=== PATIENT | male | born 1995 | race Caucasian/White ===

== ENCOUNTER 2017-03-06 16:51 | Emergency (ER) | payer BC ==
[2017-03-06] MEDS ORDERED: NORMAL SALINE 10 ML SYRINGE FLUSH IVP PRN (17:15)
[2017-03-06 17:26] VITALS: RESP 18; TEMP 96.9
[2017-03-06 17:35] LABS: BASOPHILS # (AUTO) 0.02 10*3/UL; BASOPHILS % (AUTO) 0.2 % (0-1); EOSINOPHILS # (AUTO) 0.09 10*3/UL; HEMATOCRIT 44.1 % (42.0-52.0); HEMOGLOBIN 15.1 g/dL (14.0-18.0); LYMPHOCYTES # (AUTO) 3.12 10*3/uL; MEAN CORPUSCULAR HGB CONC 34.2 g/dL (33-37); MEAN CORPUSCULAR VOLUME 81.8 FL (80-90); MEAN PLATELET VOLUME 9.9 FL (7.4-12.2); MONOCYTES # (AUTO) 0.69 10*3/UL (0.3-0.8); MONOCYTES % (AUTO) 7.9 % (5-15); NEUTROPHILS # (AUTO) 4.75 10*3/UL; NEUTROPHILS % (AUTO) 54.5 % (50-80); RED BLOOD COUNT 5.39 10^6/uL (4.70-6.10)
[2017-03-06 17:36] LABS: PLATELET MORPHOLOGY COMMENT NORMAL MORPHOLOGY (NORM); RBC MORPHOLOGY COMMENT NORMAL MORPHOLOGY (NORM); WBC MORPHOLOGY COMMENT NORMAL MORPHOLOGY (NORM)
[2017-03-06 17:45] LABS: BLOOD UREA NITROGEN 20 mg/dL (7-22); CALCIUM 9.4 mg/dL (8.7-10.7); EST GLOMERULAR FILTRATION > 60 (>60 ml/min/1.73m(2)); SERUM ALBUMIN 4.6 g/dL (3.5-4.8)
--- NOTE | 2017-03-06 18:12 | DI ---
PA /LATERAL CHEST X-RAY, 03/06/2017 5:15 PM : Clinical History: Hemoptysis. Previous Exam: None at this facility. There is no acute soft tissue or bony abnormality. Heart size is normal. Lungs are clear. Mediastinal structures are normal. There are no pulmonary nodules. IMPRESSION: Normal chest x-ray.
--- NOTE | 2017-03-06 19:38 | DI ---
CT CTA CHEST NONCORONARY W/WO,03/06/2017 6:08 PM: Clinical History: Hemoptysis Previous Exam: April 17, 2016 Findings: Multiple helically acquired CT images are obtained through the chest following the administration of intravenous contrast as part of a CT angiogram protocol, and demonstrate some linear densities within the right pulmonary arteries most consistent with some residual fibrin from an old pulmonary embolis m. There is no truncation. The aorta is within normal limits. The heart appears normal. There is no infiltrate nor effusion and there is no evidence of pulmonary infarction. Skeletal structures are unremarkable. Impression: Mild residual linear densities within the right lower lobe pulmonary arteries most consistent with ch ronic pulmonary embolism with some residual fibrin. There is no other filling defect identified, and this is believed to be residual from the prior pulmonary embolism seen back in March of last year.
--- NOTE | 2017-03-06 23:02 | PDOC ---
General Adult HPI - General Chief Complaint: General Medical Stated Complaint: "COUGHING UP BLOOD", DIZZY Date Seen by Provider: 03/06/17 Time Seen by Provider: 16:55 Source: POSITIVE: Patient Exam Limitations: POSITIVE: No limitations Nurse's Notes Reviewed & Considered: Yes - History of Present Illness Initial Comment: The patient is a 21-year-old male. He states that 3 days ago he "coughed up" some mucoid sputum streaked with blood. He had 2 similar episodes today. He has not had tanner hemoptysis but he states he had some blood streaked on mucoid sputum. Patient states he was diagnosed with a pulmonary embolism in 2013. Patient states that just prior to this diagnosis he" passed out" [place] He was on anticoagulants for about 6 months thereafter. Then patient had another pulmonary embolism diagnosed about 6 months ago and he has been on Zarrella toe since. Patient did have a inferior vena cava filter placed, which has since been removed. Patient has been seen at the [facility] in [place] and his primary care provider is in [place]. Patient denies any acute chest pain. He denies any easy bruising, ecchymosis, or blood in his urine or stool. Have you received a tetanus shot in the past 10 years?: Yes Body Location Affected: REPORTS: Other (Coughing up blood tinged sputum as above , 4 episodes in the past 3 days) Duration: Other (As above) Severity: Mild Quality: REPORTS: Other (Patient denies any pain anywhere) Context: REPORTS: Coughing Modifying Factors: improves with: Nothing Similar Symptoms Previously: No Recent Care Received: REPORTS: Denies Any Prior Injuries Related to Current Complaint?: Yes (as above) - Patient Home Medications Home Medications: Home Medications Rivaroxaban [Xarelto] 20 mg PO DAILY 06/21/16 - Patient Allergies Allergies/Adverse Reactions: Allergies Allergy/AdvReac Type Severity Reaction Status Date / Time No Known Drug Allergies Allergy NOT Verified 03/06/17 17:02 APPLICABLE Past Medical History - heblanca HEENT History: Denies History Cardiovascular History: DVTs Additional Cardiovasular History: SINCE EXPOSURE TO GAS IN 2014, GREEN'S FILTER PLACED AND REMOVED 3 MONTHS LATER Respiratory History: Pulmonary Embolism Additional Respiratory History: QUIT SMOKING 06/2014 (only smoked socially). CHRONIC SOB AND COUGH SINCE WASTE GAS EXPOSURE 07/2014 Gastrointestinal History: Denies History Genitourinary History: Denies History Endocrine History: Denies History Musculoskeletal History: Denies History Prosthesis or Implant: No Neurological History: Denies History Blood Disorders: Other (please comment) Additional Blood Disorders History: DVT AND PE AFTER HAVING A INHALATION ACCIDENT IN THE [place]ACE Psychiatric History: Denies History History of Sexually Transmitted Diseases: No Cancer History: Denies History In Past Year Been Physically Harmed or Verbally Threatened: No History of MDRO: Unknown History of Other Communicable Diseases: No Tobacco Use: Former Smoker Alcohol Use: Occasionally Substance Use Type: None Previous Surgical History: Yes Type / Date of Surgery: [place]ol[place] filter placed AND REMOVED 3 MONTHS LATER Anesthesia Reactions: No Malignant Hyperthermia: No Significant Family History: Diabetes Additional Family History: MOTHER (DVT) Past Medical History Reviewed: Reviewed - No Changes ROS - Limitations ROS Limitations: No Limitations Constitution: REPORTS: Denies Symptoms Cardiovascular: REPORTS: Denies Cardiac Symptoms Respiratory: REPORTS: Cough Productive (Cough productive of mucoid blood tinged sputum) Neurological: REPORTS: Denies Neuro Symptoms Gastrointestinal: REPORTS: Denies GI Symptoms Endocrine: REPORTS: Denies Symptoms Musculoskeletal: REPORTS: Denies MS Symptoms Genitourinary: REPORTS: Denies Symptoms Eyes: REPORTS: Denies Symptoms ENT: REPORTS: Nasal Drainage (Some postnasal drainage) Skin: REPORTS: Denies Skin Symptoms Lympathic: REPORTS: Denies Lympathic Symptoms Immunologic: POSITIVE: Denies Symptoms Psychiatric: POSITIVE: Denies Psych Symptoms General Adult Exam - General Appearance General Appearance: POSITIVE: Alert, Cooperative, No Acute Distress, No Evidence of Trauma - HEENT HEENT: POSITIVE: Head Inspection Nml, Eyes Inspection Nml, Ears Inspection Nml, Nose Inspection Nml, Oral/Dental Inspect. Nml, Pharynx Inspect. Nml, PERRL, EOMI - Pupils Pupil Size: 3 mm: Bilateral (PERRLA) - Neck Neck: POSITIVE: Normal Inspection, Thyroid Normal - Respiratory Respiratory: POSITIVE: No Respiratory Distress, Breath Sounds Normal, Chest Non- Tender - Cardiovascular Cardiovascular: POSITIVE: Regular Rate & Rhythm, No Murmur, No Gallop, PMI Normal Peripheral Pulses: Radial (R): 2+, Radial (L): 2+ - Abdomen Abdomen: Soft: (All Quadrants), Normal Bowel Sounds: (All Quadrants), Denies Tenderness: (All Quadrants), No Splenomegaly: (All Quadrants), No Hepatomegaly: (All Quadrants), No Guarding: (All Quadrants), No Rebound: (All Quadrants), No Palpable Pulse: (All Quadrants), No Palpabale Mass: (All Quadrants), No Distention: (All Quadrants), No Rigidity: (All Quadrants) - Back Back: POSITIVE: Normal Inspection - Skin Skin: POSITIVE: Normal Color, Warm, Dry, No Rash - Extremities Extremity: Non-Tender: (All Extremities), Normal ROM: (All Extremities), Normal Inspection: (All Extremities) - Neurological / Psychological Neurological: POSITIVE: Oriented X3, 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 CTA of chest shows mild residual linear densities within the right lower lobe pulmonary arteries compatible with chronic pulmonary embolism. No acute filling defects identified per radiologist. Lab Results Reviewed: Yes Lab Results:: Laboratory Results 03/06/17 Range/Units 17:31 WBC 8.72 (4.8-10.8) 10^3/uL RBC 5.39 (4.70-6.10) 10^6/uL Hgb 15.1 (14.0-18.0) g/dL Hct 44.1 (42.0-52.0) % MCV 81.8 (80-90) FL MCH 28.0 (27-31) PG MCHC 34.2 (33-37) g/dL RDW Std Deviation 40.2 (39-50) fL RDW Coeff of Emma 13.6 (11.5-14.5) % Plt Count 234 (140-350) 10*3/uL MPV 9.9 (7.4-12.2) FL Immature Gran % (Auto) 0.6 (0-5) % Neut % (Auto) 54.5 (50-80) % Lymph % (Auto) 35.8 (10-50) % Redwood % (Auto) 7.9 (5-15) % Eos % (Auto) 1.0 (0-8) % Baso % (Auto) 0.2 (0-1) % Immature Gran # (Auto) 0.05 10*3/UL Neut # (Auto) 4.75 10*3/UL Lymph # (Auto) 3.12 10*3/uL Redwood # (Auto) 0.69 (0.3-0.8) 10*3/UL Eos # (Auto) 0.09 10*3/UL Baso # (Auto) 0.02 10*3/UL WBC Morphology Comment Normal morphology (NORM) Plt Morphology Comment Normal morphology (NORM) RBC Morph Comment Normal morphology (NORM) PT 10.7 (9.7-11.4) secs INR 1.04 (0.00-5.90) N/A D-Dimer < 0.19 (0.00-0.59) mg/L Sodium 141 (135-145) meq/L Potassium 4.2 (3.8-5.2) meq/L Chloride 103 (98-112) meq/L Carbon Dioxide 27 (23-33) meq/L Anion Gap 11 (5-20) BUN 20 (7-22) mg/dL Creatinine 1.0 (0.70-1.50) mg/dL Estimated GFR > 60 (>60 ml/min/1.73m(2)) BUN/Creatinine Ratio 20.00 (6-20) Glucose 84 (78-110) mg/dL Calculated Osmolality 293.0 H (267-292) mOsm/kg Calcium 9.4 (8.7-10.7) mg/dL Total Bilirubin 0.4 (0.3-1.2) mg/dL AST 26 (21-57) IU/L ALT 45 (21-72) IU/L Alkaline Phosphatase 51 (38-126) IU/L Total Protein 8.1 H (6.1-8.0) g/dL Albumin 4.6 (3.5-4.8) g/dL Globulin 3.5 (2.50-4.10) g/dL Albumin/Globulin Ratio 1.30 (1.3-2.0) mg/g - Patient's Progress Pain Medication Addressed: POSITIVE: Not Applicable School/Work Release Addressed: POSITIVE: Not Applicable Re-Examine Time: 19:50 Status: POSITIVE: Unchanged Antibiotics Given: No - Consult Counseled: POSITIVE: Patient, RE: Lab Results, RE: Radiology Results, RE: DX, RE : Need for F/U Patient Care Time - Estimated PCT Patient Care Time (In Minutes): 55 Vital Signs - Recent Vital Signs Vital Signs: Vital Signs (Last 8 hours) Temp Pulse Pulse Resp BP BP Pulse Ox 03/06/17 20:06 91 18 134/95 93 03/06/17 16:52 96.9 F 97 18 147/94 95 - VS Reviewed Vital Signs Reviewed: Yes Discharge Clinical Impression: Hemoptysis Discharge Disposition: Discharged to Home Condition: Stable Patient Instructions Given at Discharge: Hemoptysis (ED) Additional Instructions: I believe the episodes of blood-tinged sputum which you have had Sunday and today, heart likely due to your Xarelto. Your blood tests were normal and repeat CTA of the chest shows no recurrence of pulmonary emboli. Please avoid all aspirin, Aleve, Naprosyn, and similar medications. No Xarelto for 24 hours. Zyrtec, one daily for your cough and postnasal drainage. Return here anytime if condition worsens in any way. Follow-up with your primary care provider. Follow Up With: CHAVEZ ARELLANO FNP [Primary Care Provider] - (Return here anytime if condition worsens. Follow-up with your primary care provider.)
== END 2017-03-06 20:06 | disposition home or self-care (01) ==
LOC: ER 16:51
DX: R04.2 Hemoptysis (principal); R05 Cough; I27.82 Chronic pulmonary embolism
CPT/HCPCS: 36000; 71020; 71275; 80053; 85025; 85379; 85610; 99283